=== PATIENT | female | born 1995 | race Caucasian/White ===

== ENCOUNTER → 2018-05-15 | Outpatient (CLI) | payer OTHER ==
--- NOTE | 2018-05-16 08:19 | RADIOLOGY REPORT (SQ) ---
EXAM DESCRIPTION: U/S THYROID/SFT TISS HD NECK COMPLETED DATE/TIME: 05/15/2018 6:10 pm REASON FOR STUDY: E04.1 NONTOXIC SINGLE THYROID NODULE E04.1 NONTOXIC SINGLE THYROID NODULE COMPARISON: None. TECHNIQUE: Dynamic and static bradshaw-scale images acquired of the thyroid gland. Selected additional c olor/power Doppler images recorded. All images stored to PACS. LIMITATIONS: None. FINDINGS: RIGHT LOBE: The right lobe of the thyroid gland measures 4.1 x 1.5 x 1.3 cm, normal size. Homogeneous echotexture. No cystic or solid masses. LEFT LOBE: The left lobe measures 4.1 x 1.4 x 1.2 cm, normal size. Homogeneous echotexture. There are several anechoic nodules in the left lobe which contain a small echogenic focus. One of the larg est measures 3 x 2 x 3 mm. Considerations for these findings include colloid cysts. ISTHMUS: The isthmus measures 3.0 mm in AP diameter, upper limits of normal for size. Homogeneous e chotexture. Toward the right side of the isthmus a 4 x 1 x 3 mm complex nodule. OTHER: No other significant finding. IMPRESSION: 1. Several subcentimeter thyroid nodules are identified as detailed above. COMMENT: RECOMMENDATIONS FOR THYROID NODULES 1 CM OR LARGER Solitary nodules: Microcalcifications - FNA if 1 cm or greater. Solid or coarse calcification - FNA if 1.5 cm or greater. Mixed Solid/Cystic or Cystic with Mural Nodule - FNA if 2 cm or greater. None of the above but substantial growth since previous - FNA. Cystic with none of the above features and no significant growth - no FNA. Multiple nodules: Use above criteria for selection of nodules to FNA/biopsy. Biopsy probably not necessary in enlarged gland with multiple nodules of similar appearance. Abnormal lymph nodes - FNA/biopsy. Reference: Management of Thyroid Nodules Detected at [place]: Society of Radiologists in Ultrasound Consensus Stateme nt. Radiology 2005; 237:794-800 TECHNICAL DOCUMENTATION: JOB ID: [id number] [employer]- All Rights Reserved Reading location - IP/workstation name: [email or web address]
== END ==
LOC: EDBD 18:00 → RAD 18:50
PROVIDERS: ATTEND Internal Medicine
DX: E04.1 Nontoxic single thyroid nodule (principal)
CPT/HCPCS: 76536

== ENCOUNTER 2019-08-16 08:24 | Day surgery (SDC) | payer OTHER ==
[2019-08-16] MEDS ORDERED: FAMOTIDINE INJ/PF 20 MG/2 ML SDV IV ONE (09:21)
[2019-08-16] MEDS ORDERED: SCOPOLAMINE HYDROBROMIDE 1.5 MG PATCH.TD72 ONE (09:21)
[2019-08-16 09:40] LABS: HEMATOCRIT 39.6 % (36.0-47.0); HEMOGLOBIN 13.7 g/dL (12.0-15.5); MEAN CORPUSCULAR HEMOGLOBIN 29.5 pg (27.0-33.4); MEAN CORPUSCULAR HGB CONC 34.7 g/dL (32.0-36.0); MEAN CORPUSCULAR VOLUME 85 fl (80-97); PLATELET COUNT 272 10^3/uL (150-450); RED BLOOD COUNT 4.66 10^6/uL (3.72-5.28); RED CELL DISTRIBUTION WIDTH 12.6 % (11.5-14.0); WHITE BLOOD COUNT 7.1 10^3/uL (4.0-10.5)
[2019-08-16] MEDS ORDERED: SUCCINYLCHOLINE CHLORIDE INJ 200 MG/10 ML VIAL ONE (09:48)
[2019-08-16] MEDS ORDERED: ROCURONIUM BROMIDE INJ 50 MG/5 ML VIAL IV ONE (09:48)
[2019-08-16] MEDS ORDERED: FENTANYL CITRATE INJ/PF 250 MCG/5 ML AMPULE ONE (09:57)
[2019-08-16] MEDS ORDERED: PROPOFOL INJ 200 MG/20 ML VIAL IV ONE (09:57)
[2019-08-16] MEDS ORDERED: DEXAMETHASONE SOD PHOSPHATE INJ 4 MG/1 ML VIAL ONE (09:57)
[2019-08-16] MEDS ORDERED: ONDANSETRON HCL INJ/PF 4 MG/2 ML SDV ONE (09:57)
[2019-08-16] MEDS ORDERED: MIDAZOLAM 2 MG/2 ML INJ ONE (09:57)
[2019-08-16] MEDS ORDERED: MORPHINE SULFATE 10 MG/ML INJ IV PRN ×2 (11:43→13:24)
[2019-08-16] MEDS ORDERED: MEPERIDINE HCL/PF INJ 25 MG/1 ML DISP.SYRIN IV PRN (11:43)
[2019-08-16] MEDS ORDERED: PROMETHAZINE HCL INJ 25 MG/1 ML VIAL IV PRN (11:43)
[2019-08-16] MEDS ORDERED: FENTANYL CITRATE INJ/PF 100 MCG/2 ML AMPUL IV PRN ×3 (11:43)
[2019-08-16] MEDS ORDERED: DIPHENHYDRAMINE HCL 50 MG/ML VIAL IV PRN (11:43)
--- NOTE | 2019-08-16 12:27 | Operative Report ---
Operative Report DATE OF SURGERY: 08/16/19 PREOPERATIVE DIAGNOSIS: right ovarian cyst POSTOPERATIVE DIAGNOSIS: same OPERATION: Robotic assisted right ovarian cystectomy and diagnositic laparoscopy SURGEON: RAJIV SUAREZ 1ST MANAGER HOTEL: FELICITY LOPEZ ANESTHESIA: GA TISSUE REMOVED OR ALTERED: right ovarian cyst COMPLICATIONS: none ESTIMATED BLOOD LOSS: 25cc INTRAOPERATIVE FINDINGS: 3 and 1/2 centimeter cyst on right ovary consistent with a hemorrhagic cyst. No evidence of adhesions. Appendix within normal limits. Upper abdomen was also within normal limits with no evidence of adhesions. There was no mesh noted from patient's previous supposed hernia repairs. No suturing noted. PROCEDURE: Patient was taken the operating room prepared draped in normal sterile dorsolithotomy position. A Pool catheter was placed to gravity. Neuro SPECT speculum was placed into the vagina and the cervix was dilated to accommodate a [employer] manipulator which was placed without difficulty. This. Speculum was removed gloves were changed and attention was turned to the upper portion of the case where umbilical skin incision was made with a 11 blade scalpel and carried through the underlying layer fascia with the same scalpel. Fascia was grasped with 2 [place] clamps and the fascia was excised using Baker scissors and extended laterally using the same Baker scissors. A GelPort was placed in a normal fashion without difficulty. The abdomen was inflated with approximately 2 and half liters of CO2 gas. The patient was placed in steep Trendelenburg and the camera was introduced through the camera port with the above findings noted. Abdomen was carefully surveyed as there was concern that the patient may have significant adhesion disease due to her previous hernia repairs that she reported. There was no evidence of any sutures in the anterior abdominal wall. Liver and diaphragm were inspected and no defects were noted. The lower pelvis was also inspected and there again there was no evidence of scar tissue or adhesion disease. The left ovary was completely within normal limits. The right ovary was inspected and there was approximately a 3-1/2 cm cyst that did look suspicious for being a chocolate cyst. The ports were placed approximately 10 cm on either side of the umbilicus and a direct visualized fashion. And the robot was docked. Unscrubbed and set at the console and inspected the anterior and posterior cul-de-sacs looking for any signs of endometriosis and did not find any. The right ovary was inspected and grasped the right ovary was then transected at the surface slightly with the monopolar scissors. The cyst was easily located and this was shelled out using the blunt dissection and sharp dissection using of monopolar scissors. The ovarian remnants were inspected and found to be hemostatic. The defect on the ovary was then packed with a piece of Interceed. And watch once more and found found to continue to be hemostatic. The case was then concluded the ports were removed the fascia was closed to the umbilicus using 0 Vicryl. Skin was closed at all 3 sites using 4-0 Vicryl. Tolerated procedure well sponge lap and needle counts were correct x2 and the patient was taken to recovery in stable condition thank you this concludes dictation.
[2019-08-16] MEDS ORDERED: ACETAMINOPHEN 1,000 MG/100 ML RTUPB IV ONE (12:42)
[2019-08-16] MEDS: HYDROMORPHONE HCL INJ/PF 2 MG/ML AMPULE ONE ×2 (12:43→12:53)
[2019-08-16] MEDS ORDERED: LORAZEPAM INJ 2 MG/1 ML VIAL ONE (12:53)
[2019-08-16] MEDS ORDERED: OXYCODONE-ACETAMINOPHEN 5-325 MG TABLET PO PRN ×2 (13:25)
[2019-08-16] MEDS ORDERED: IBUPROFEN 800 MG TABLET PO PRN (13:26)
--- NOTE | 2019-08-16 13:30 | EKG REPORT ---
SEVERITY:- OTHERWISE NORMAL ECG - SINUS ARRHYTHMIA, RATE 51-84 : Confirmed by: Bakari Guzman MD 16-Aug-2019 13:29:29
[2019-08-16] MEDS ORDERED: OXYCODONE-ACETAMINOPHEN 5-325 MG TABLET ONE (13:59)
[2019-08-16] MEDS ORDERED: IBUPROFEN 800 MG TABLET ONE (13:59)
[2019-08-16 16:43] VITALS: BP 110/64
== END 2019-08-16 15:50 | disposition home or self-care (01) ==
LOC: OROUT 08:24
PROVIDERS: ATTEND Obstetrics & Gynecology
DX: N83.11 Corpus luteum cyst of right ovary (principal); R10.2 Pelvic and perineal pain; E03.9 Hypothyroidism, unspecified; I49.5 Sick sinus syndrome
CPT/HCPCS: 86900; 86901; 36415; 86850; 85027; 81025; 88305 ×2; 93005; 93010; 00840; 58662; C1765; J2250; J3490; J1100; J3010; J1170; J2060; J0330; J2405; J2704; S0028; J0131; 840

== ENCOUNTER → 2019-09-28 | Outpatient (CLI) | payer OTHER ==
[2019-09-28 15:12] VITALS: BP 132/68
--- NOTE | 2019-09-28 15:12 | ER RDC ASSESSMENT REPORT ---
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 - Symptoms Subjective Fever([place] feverish): Yes Chills: Yes Muscule Aches: Yes Runny Nose: Yes Sore Throat: Yes Cough (New or worsening chronic cough): Yes Shortness of breath: No Nausea or Vomiting: No Headache: Yes Abdominal Pain: No Diarrhea(3 or more loose stools in last 24 hours): No - Do you have any of the following Chronic lung disease: Asthma or emphysema or COPD: No Cystic Fibrosis: No Diabetes: Yes Diabetes Comment: Patient reports history of sick sinus syndrome High Blood Pressure: No Cardiovascular Disease: No Chronic Kidney Disease: No Chronic Liver Disease: No Chronic blood disorder like Sickle Cell Disease: No Weak immune system due to disease or medication: No Neurologic condition that limits movement: No Developmental delay - Moderate to Severe: No Recent (within past 2 weeks) or current : No - Objective Temperature: 97.3 F Pulse Rate: 94 Respiratory Rate: 16 Blood Pressure: 132/68 O2 Sat by Pulse Oximetry: 97 Objective: Given above, testing performed: If Testing Performed: Test Specimen Type Sent to General - General Stated Complaint: Upper respiratory symptoms Mode of Arrival: Ambulatory Information source: Patient Notes: Patient presents for Covid-19 testing, and reports upper respiratory symptoms. - Related Data Allergies/Adverse Reactions: No Known Allergies Allergy (Unverified 08/23/19 11:01) Past Medical History - Social History Smoking Status: Never Smoker Family History: Reviewed & Not Pertinent - Past Medical History Cardiac Medical History: Denies: Hx Coronary Artery Disease, Hx Heart Attack, Hx Hypertension Pulmonary Medical History: Denies: Hx Asthma, Hx Bronchitis, Hx COPD, Hx Pneumonia Neurological Medical History: Denies: Hx Cerebrovascular Accident, Hx Seizures Renal/ Medical History: Denies: Hx Peritoneal Dialysis Musculoskeletal Medical History: Denies Hx Arthritis Past Surgical History: Reports: Other - ACL repair Physical Exam - General General appearance: Appears well In distress: None Notes: PHYSICAL EXAMINATION: GENERAL: Well-appearing and in no acute distress. HEAD: Atraumatic, normocephalic. EYES: sclera anicteric, conjunctiva are normal. ENT: nares patent. Moist mucous membranes. NECK: Normal range of motion, supple without lymphadenopathy LUNGS: CTAB and equal. No wheezes rales or rhonchi. HEART: Regular rate and rhythm without murmurs NEUROLOGICAL: Normal speech. PSYCH: Normal mood, normal affect. SKIN: Warm, Dry, normal turgor. Diagnostic Results Laboratory Results: Patient made aware of negative results for rapid flu and rapid strep, as well as pending results for strep culture and Covid testing. Patient Education/Counseling Counseling/Education: Patient presents with upper respiratory symptoms worrisome for possible Covid 19. Patient does not have emergency worring symptoms such as difficulty breathing, shortness of breath, chest pain, pressure, confusion or cyanosis. Patient appears suitable for discharge. Patient's vital signs are stable and patient is nontoxic in appearance. Good return precautions have been discussed with patient, patient verbalized understanding and is agreeable with discharge plan of care at this time. Patient provided Covid discharge instructions including: As a person under investigation for Covid 19, the [facility], division of public health advises you to adhere to the following guidance until your test results are reported to you. If your test result is positive, you will receive additional information from your provider and your local health department at that time. Remain at home until you are cleared by the health provider or public health authorities. Keep a log of visitors to your home, notify any visitors to your home of your isolation status. If you plan to move to a new address or leave the county, notify the local health department in your County. Call your doctor or seek care if you have an urgent medical need. Before seeking medical care, call ahead to get instructions from the provider before arriving at the medical office clinic or hospital. Notify them that you are being tested for the virus that causes Covid 19 so that arrangements can be made, as necessary, to prevent transmission to others in the healthcare setting. Next, notify the local health department in your county. If a medical emergency arises and you need to call 911, inform the first responders that you are being tested for the virus that causes Covid 19. Next, notify the local health department in your county. RDC Discharge - Discharge Condition: Stable Disposition: Home; Selfcare
[2019-09-28 15:39] LABS: A TYPE INFLUENZA AG NEGATIVE (NEGATIVE); B INFLUENZA AG NEGATIVE (NEGATIVE)
== END ==
LOC: RDC 14:09
PROVIDERS: ATTEND Nurse Practitioner Family
DX: Z20.828 Contact with and (suspected) exposure to other viral communicable diseases (principal); J02.9 Acute pharyngitis, unspecified; R05 Cough; R51 Headache
CPT/HCPCS: 36415; 87070; 87635; 87804; 87880

== ENCOUNTER 2019-11-08 06:57 | Emergency (ER) | payer OTHER ==
[2019-11-08 08:48] LABS: ABSOLUTE BASOPHILS # (AUTO) 0.1 10^3/uL (0.0-0.2); ABSOLUTE EOSINOPHILS # (AUTO) 0.7 10^3/uL (0.0-0.6); ABSOLUTE LYMPHOCYTES (AUTO) 1.8 10^3/uL (0.5-4.7); ABSOLUTE MONOCYTES (AUTO) 0.7 10^3/uL (0.1-1.4); ABSOLUTE NEUT (AUTO) 3.9 10^3/uL (1.7-8.2); BASOPHILS % (AUTO) 0.8 % (0-2); EOSINOPHILS % (AUTO) 10.3 % (0-6); HEMOGLOBIN 14.4 g/dL (12.0-15.5); LYMPHOCYTES % (AUTO) 25.3 % (13-45); MEAN CORPUSCULAR HEMOGLOBIN 30.3 pg (27.0-33.4); MEAN CORPUSCULAR HGB CONC 35.1 g/dL (32.0-36.0); MEAN CORPUSCULAR VOLUME 86 fl (80-97); MONOCYTES % (AUTO) 9.1 % (3-13); PLATELET COUNT 274 10^3/uL (150-450); RED BLOOD COUNT 4.75 10^6/uL (3.72-5.28); RED CELL DISTRIBUTION WIDTH 12.8 % (11.5-14.0); SEGMENTED NEUTROPHILS % (AUTO) 54.5 % (42-78); TOTAL CELLS COUNTED % (AUTO) 100 %; WHITE BLOOD COUNT 7.2 10^3/uL (4.0-10.5)
--- NOTE | 2019-11-08 08:52 | RADIOLOGY REPORT (SQ) ---
EXAM DESCRIPTION: CHEST SINGLE VIEW IMAGES COMPLETED DATE/TIME: 11/08/2019 8:37 am REASON FOR STUDY: cough COMPARISON: None. NUMBER OF VIEWS: One view. TECHNIQUE: Single frontal radiographic view of the chest acquired. LIMITATIONS: None. FINDINGS: LUNGS AND PLEURA: No opacities, masses or pneumothorax. No pleural effusion. MEDIASTINUM AND HILAR STRUCTURES: No masses. Contour normal. HEART AND VASCULAR STRUCTURES: Heart normal in size. Normal vasculature. BONES: No acute findings. HARDWARE: None in the chest. OTHER: No other significant finding. IMPRESSION: NO SIGNIFICANT RADIOGRAPHIC FINDING IN THE CHEST. TECHNICAL DOCUMENTATION: JOB ID: [id number] 2010 [employer]- All Rights Reserved Reading location - IP/workstation name: [email or web address]
[2019-11-08 09:24] LABS: ALBUMIN 4.6 g/dL (3.5-5.0); ALKALINE PHOSPHATASE 51 U/L (38-126); ANION GAP 8 (5-19); ASPARTATE AMINO TRANSFERASE 30 U/L (14-36); BILIRUBIN,TOTAL 0.4 mg/dL (0.2-1.3); BLOOD UREA NITROGEN 10 mg/dL (7-20); CALCIUM 9.1 mg/dL (8.4-10.2); CARBON DIOXIDE 26 mmol/L (22-30); CHLORIDE 104 mmol/L (98-107); GLUCOSE 92 mg/dL (75-110); POTASSIUM 4.4 mmol/L (3.6-5.0); TOTAL PROTEIN 7.6 g/dL (6.3-8.2)
[2019-11-08] MEDS ORDERED: METHYLPREDNISOLONE INJ 125 MG/2 ML SDV IV ONE (10:13)
[2019-11-08] MEDS ORDERED: NORMAL SALINE 1000 ML 1,000 ML IV ONE (10:13)
[2019-11-08] MEDS ORDERED: AZITHROMYCIN 250 MG TABLET PO ONE (10:14)
--- NOTE | 2019-11-08 12:01 | ER Document Report ---
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 Patient describes the cough as non- productive and states that she has associated bilateral chest pain with cough. Patient states that three days ago, she woke up and noticed that she was short of breath. Patient reports that she went to the urgent care three days ago where she was tested for strep, flu, covid-19 and pneumonia. Patient states that all tests were negative. Patient said that she was sent from the urgent care to the [facility] emergency department where the same tests were repeated and negative. Patient was given an inhaler, tesslon pearls and codeine for a possible early onset pneumonia and discharged. Patient reports that her shortness of breath has gotten progressively worse. Patient has been using her inhaler every two hours with no relief. Patient states that her symptoms are worse with laying down. Patient denies fever, nausea, vomiting, diarrhea, sore throat and chills. Patient reports a headache but states that she does not have a headache now. Patient reports having a chronic UTI that she has been treating with Keflex for the past couple months. TRAVEL OUTSIDE OF THE [place] IN LAST 30 DAYS: No - Related Data Allergies/Adverse Reactions: No Known Allergies Allergy (Unverified 08/23/19 11:01) Past Medical History - General Information source: Patient - Social History Smoking Status: Never Smoker Cigarette use (# per day): No Chew tobacco use (# tins/day): No Lives with: Family Family History: Reviewed & Not Pertinent Patient has homicidal ideation: No Pulmonary Medical History: Reports: Hx Pneumonia Past Surgical History: Reports: Hx Orthopedic Surgery - LEFT KNEE ACL, Hx Umbilical Hernia - Bilateral Review of Systems - Review of Systems Constitutional: See HPI. denies: Fever EENT: No symptoms reported Cardiovascular: No symptoms reported Respiratory: See HPI, Cough, Short of breath Gastrointestinal: No symptoms reported Genitourinary: No symptoms reported Female Genitourinary: See HPI, Last menstrual period - 11/05/2019. denies: Musculoskeletal: No symptoms reported Skin: No symptoms reported Hematologic/Lymphatic: No symptoms reported Neurological/Psychological: No symptoms reported -: Yes All other systems reviewed and negative Physical Exam - Vital signs Vitals: Temp Pulse Resp BP Pulse Ox 98.1 F 90 20 128/79 H 97 11/08/19 07:10 11/08/19 07:10 11/08/19 07:10 11/08/19 07:10 11/08/19 07:10 - Notes Notes: Physical Exam: General: Alert, appears well. HEENT: Normocephalic. Atraumatic. PERRL. Extraocular movements intact. Oropharynx clear. Neck: Supple. Non-tender. Respiratory: No respiratory distress. Clear and equal breath sounds bilaterally. Cardiovascular: Regular rate and rhythm. Abdominal: Normal Inspection. Non-tender. No distension. Normal Bowel Sounds. Back: No gross abnormalities. Extremities: Moves all four extremities. Upper extremities: Normal inspection. Normal ROM. Lower extremities: Normal inspection. No edema. Normal ROM. Neurological: Normal cognition. AAOx4. Normal speech. Psychological: Normal affect. Normal Mood. Skin: Warm. Dry. Normal color. Course - Re-evaluation Re-evalutation: 11/08/19 11:51 Patient lungs are clear no signs of respiratory distress no wheezing noted on exam. Pulse oximetry 98% room air. 11/08/19 11:59 Regarding COVID-19 status patient has had 3- COVID-19 studies in the past 4 weeks. Most recent was in the past week. Therefore no COVID-19 testing or influenza or strep testing was done today as it was just completed 4 days ago. And as reported all of her tests were negative. 11/08/19 12:00 - Vital Signs Vital signs: Temp Pulse Resp BP Pulse Ox 98.1 F 85 18 128/79 H 98 11/08/19 07:10 11/08/19 11:27 11/08/19 11:27 11/08/19 07:10 11/08/19 11:27 - Laboratory Result Diagrams: 11/08/19 08:26 11/08/19 08:26 Laboratory results interpreted by me: 11/08/19 08:26 Eos % (Auto) 10.3 H Absolute Eos (auto) 0.7 H Laboratories within normal limits eosinophils elevated at 10.3 consistent with maybe an allergic reaction and also oftentimes associated with asthma. - Diagnostic Test Radiology reviewed: Image reviewed, Reports reviewed Radiology results interpreted by me: 11/08/19 11:53 Chest x-ray report shows no acute process no infiltrate noted. Discharge - Discharge Clinical Impression: Viral upper respiratory tract infection with cough Condition: Stable Disposition: HOME, SELF-CARE Instructions: Upper Respiratory Illness ([facility]) Additional Instructions: Cough Suppressant/Expectorant Medication You are to use a cough medication as needed for relief of symptoms. This medicine is a combination of an expectorant (to make the mucous thinner and more easily "coughed up") and a cough suppressant (to reduce the frequency of coughing). The cough-suppressant medicine is related to narcotics. You may experience mild nausea and sleepiness. Some patients who are very sensitive to narcotics may have stomach pain from this medicine. Taking the medicine with food reduces these side effects. Do not drive or work with machinery until you know how this medicine affects you. The expectorant should have no side effects. Iodine-containing expectorants (such as organidin) should not be taken by persons with active thyroid disease unless approved by your doctor. Call the doctor if you develop shortness of breath, hives, rash, itching, lightheadedness, or severe nausea and vomiting. Continue your medications as you usually taking rescue inhaler albuterol, cough syrup with codeine and I suggest that you take half the dose since the codeine causes some sedation. In addition I am adding a Medrol Dosepak which is a 6-day course of taking steroids on a tapering dose basis follow package instructions. Zithromax has been added as a 5-day course. Also we encourage you to be well- hydrated as well. Prescriptions: Methylprednisolone [Medrol Dosepack (4 mg/Tab) 21 Tab/Dosepak] 4 mg PO ASDIR PRN #21 tab.ds.pk PRN Reason: Azithromycin [Zithromax 250 mg Tablet] 250 mg PO ASDIR PRN #6 tablet PRN Reason: Referrals: LOCALMD,NO [NO LOCAL MD] - Follow up as needed I personally performed the services described in the documentation, reviewed and edited the documentation which was dictated to the scribe in my presence, and it accurately records my words and actions.
[2019-11-08 12:21] VITALS: BP 113/70
== END 2019-11-08 12:19 | disposition home or self-care (01) ==
LOC: ER 06:57
DX: J06.9 Acute upper respiratory infection, unspecified (principal); B97.89 Other viral agents as the cause of diseases classified elsewhere; J20.9 Acute bronchitis, unspecified; R05 Cough; R06.02 Shortness of breath; R07.9 Chest pain, unspecified; N39.0 Urinary tract infection, site not specified; Z79.2 Long term (current) use of antibiotics; Z87.01 Personal history of pneumonia (recurrent)
CPT/HCPCS: 99283; 96361; 96374; 36415; 85025; 80053; 71045; J2930; J7030

== ENCOUNTER 2019-11-29 22:23 | Emergency (ER) | payer OTHER ==
[2019-11-30] MEDS ORDERED: PREDNISONE 20 MG TABLET PO ONE (00:36)
[2019-11-30] MEDS ORDERED: ALBUTEROL SULFATE 0.042% NEB (1.25 MG/3 ML) AMPUL NEB ONE (00:36)
--- NOTE | 2019-11-30 00:42 | ER Document Report ---
ED General - General Chief Complaint: Shortness Of Breath Stated Complaint: SHORTNESS OF BREATH/COUGH Time Seen by Provider: 11/29/19 23:57 Primary Care Provider: ROSEANNA MEHTA MD [Primary Care Provider] - Follow up as needed TRAVEL OUTSIDE OF THE [place] IN LAST 30 DAYS: No - HPI Notes: Patient is a 23-year-old female who presents to the emergency department for evaluation of shortness of breath. Is been going on for the last several months. She seen her primary care provider multiple times. She has gone to urgent care, and ED [place]. She states she has been wheezing. She feels she may have adult onset asthma. She states her mother had this as well. She is started developing some seasonal allergy type symptoms. She has been wheezing. She feels short of breath, particularly when she lays down. She has been using her albuterol inhaler, which helps, but she is run out of it. No fevers or chills. She has had a dry, nonproductive cough. She states occasionally she has coughing enough to trigger posttussive emesis. No fevers. She denies any pain at this time. She has no history of DVT or PE. No family history of DVT or PE. She has had an ovarian cystectomy, but this was over 3 months ago. She is not on OCPs. No prolonged immobilization, no personal history of cancer. - Related Data Allergies/Adverse Reactions: No Known Allergies Allergy (Unverified 08/23/19 11:01) Past Medical History - General Information source: Patient - Social History Smoking Status: Never Smoker Frequency of alcohol use: None Drug Abuse: None Family History: Reviewed & Not Pertinent Patient has homicidal ideation: No - Past Medical History Cardiac Medical History: Denies: Hx Coronary Artery Disease, Hx Heart Attack, Hx Hypertension Pulmonary Medical History: Reports: Hx Pneumonia Denies: Hx Asthma, Hx Bronchitis, Hx COPD Neurological Medical History: Denies: Hx Cerebrovascular Accident, Hx Seizures Renal/ Medical History: Denies: Hx Peritoneal Dialysis Musculoskeletal Medical History: Denies Hx Arthritis Past Surgical History: Reports: Hx Gynecologic Surgery - Ovarian cystectomy, Hx Orthopedic Surgery - LEFT KNEE ACL, Hx Umbilical Hernia - Bilateral, Other - ACL repair Review of Systems - Review of Systems Respiratory: See HPI Gastrointestinal: See HPI -: Yes All other systems reviewed and negative Physical Exam - Vital signs Vitals: Temp Pulse Resp BP Pulse Ox 98 F 90 20 142/70 H 98 11/29/19 23:16 11/29/19 23:16 11/29/19 23:16 11/29/19 23:16 11/29/19 23:16 - Notes Notes: Vital signs reviewed, please refer to chart. Head is normocephalic, atraumatic. Pupils equal round, reactive to light. Neck is supple without meningismus. Heart is regular rate and rhythm. Lungs are clear to auscultation bilaterally, but patient with dry, nonproductive cough on deep inspiration. Abdomen is soft, nontender, normoactive bowel sounds throughout. Extremities without cyanosis, clubbing. Posterior calves are nontender. Peripheral pulses are equal. Skin is warm and dry. Patient is awake, alert, neurological exam is nonfocal. Course - Re-evaluation Re-evalutation: 11/30/19 00:39 Patient presents to the emergency department for evaluation. Vital signs are reviewed. She is not tachypneic. Her SPO2 is 98%. She is not extensively wheezing. The patient states she feels significantly improved with albuterol inhaler, but we do not have one in the department. She was given nebulized albuterol, 1.25 mg. I will start her on prednisone, which she has had recently. We talked at length about maybe trying [id number] nonsedating antihistamines, which may be helpful. I also suggest that she discuss possible Singulair therapy with her primary care provider. She was amenable to this plan. We also discussed the need for possible PFTs for further evaluation, and she voiced understanding. Otherwise, the patient is not actively wheezing, she is not hypoxic, not tachypneic, and remained stable. I will send her home with a tapering dose of prednisone and close follow-up. She is to return to the ED with worsening. - Vital Signs Vital signs: Temp Pulse Resp BP Pulse Ox 98 F 90 20 142/70 H 98 11/29/19 23:31 11/29/19 23:16 11/29/19 23:16 11/29/19 23:16 11/29/19 23:16 Discharge - Discharge Clinical Impression: Dyspnea Qualifiers: Dyspnea type: unspecified Qualified Code(s): R06.00 - Dyspnea, unspecified Condition: Stable Disposition: HOME, SELF-CARE Instructions: Dyspnea, Nonspecific ([facility]) Additional Instructions: Take prednisone as directed until gone. Use albuterol inhaler, 2 puffs every 4- 6 hours as needed for shortness of breath. Follow-up with your primary care provider. You may want to discuss possible pulmonary function tests and pulmonology referral if symptoms persist. Start [id number] nonsedating antihistamine, such as Zyrtec, as discussed. Return to the emergency department for worsening or new concerning symptoms of any sort. Referrals: ROSEANNA MEHTA MD [Primary Care Provider] - Follow up as needed
[2019-11-30 01:00] VITALS: BP 113/66
== END 2019-11-30 01:00 | disposition home or self-care (01) ==
LOC: ER 22:23
DX: R06.00 Dyspnea, unspecified (principal); R06.02 Shortness of breath; R06.2 Wheezing; R05 Cough
CPT/HCPCS: 94640; 99284; J3490; J7512

== ENCOUNTER → 2020-05-16 | Outpatient (CLI) | payer OTHER | LOC: OD 10:31 | PROVIDERS: ATTEND Obstetrics & Gynecology | DX: O20.0 Threatened abortion (principal); Z3A.00 Weeks of gestation of pregnancy not specified | CPT/HCPCS: 36415; 84702; 86900; 86901 ==